=== PATIENT | male | born 1960 | race Caucasian/White ===

== ENCOUNTER → 2017-12-25 | Outpatient (CLI) | payer OTHER ==
[~2017-12-25] MED LIST: AMLODIPINE BESY10 MG PO; ASPIR 8181 MG PO; ATENOLOL 25 MG25 M1 PO; ATIVAN1 MG PO; CLONAZEPAM 0.50.5 M1 PO; PROZAC20 MG PO; ROBITUSSIN100 MG/53 PO; TRAMADOL 50 MG50 MG PO
== END ==
LOC: M.RAD 08:23
DX: R07.2 Precordial pain (principal)

== ENCOUNTER 2018-04-18 05:33 | Inpatient (IN) | payer OTHER ==
[~2018-04-18] VITALS: Ht 182.9 cm; Wt 90.0 kg
[2018-04-18] VITALS (8 sets, daily range): BP systolic 105–125; BP diastolic 46–79
[2018-04-18] MEDS ORDERED: AMLODIPINE BESY10 MG PO (06:00)
[2018-04-18] MEDS ORDERED: ATIVAN1 MG PO (06:01)
[2018-04-18] MEDS ORDERED: TRAMADOL 50 MG50 MG PO (06:01)
[2018-04-18 06:02] LABS: ABSOLUTE EOSINOPHILS 0.1 thou/uL (0.0-0.7); ABSOLUTE LYMPHOCYTES 0.6 thou/uL (0.8-5.3); ABSOLUTE MONOCYTES 0.7 thou/uL (0.0-1.2); ABSOLUTE NEUTROPHILS 4.4 thou/uL (1.6-8.1); BASOPHILS 0.4 %; EOSINOPHILS 1.1 %; HEMOGLOBIN 13.2 gm/dL (14.0-18.0); LYMPHOCYTES 10.8 %; MCHC 34.6 g/dL (28.0-37.0); MCV 92.3 fL (80.0-100.0); MONOCYTES 12.6 %; MPV 7.7 fl. (7.2-11.1); NUCLEATED RBCS 0 /100WBC; PLATELET COUNT* 222 thou/uL (150-400); POLYS 75.1 %; RBC 4.12 mil/uL (4.50-6.00); RDW-CV 14.6 % (10.5-14.5); WBC 5.9 thou/uL (4.0-11.0)
[2018-04-18] MEDS ORDERED: ROBITUSSIN100 MG/53 PO (06:02)
[2018-04-18] MEDS ORDERED: PROZAC20 MG PO (06:02)
[2018-04-18] MEDS ORDERED: CLONAZEPAM 0.50.5 M1 PO (06:02)
[2018-04-18] MEDS ORDERED: ATENOLOL 25 MG25 M1 PO (06:03)
[2018-04-18] MEDS ORDERED: ASPIR 8181 MG PO (06:04)
[2018-04-18 06:22] LABS: CALCIUM 8.9 mg/dL (8.5-10.1); POTASSIUM 4.3 mmol/L (3.5-5.1)
[2018-04-18 06:27] LABS: ALBUMIN 3.9 g/dL (3.4-5.0); TOTAL BILIRUBIN 1.3 mg/dL (<0.1-1.0); TOTAL PROTEIN 7.1 g/dL (6.4-8.2)
[2018-04-18 07:19] LABS: URINE BILIRUBIN NEGATIVE (Negative); URINE BLOOD TRACE (Negative); URINE CLARITY CLEAR; URINE COLOR YELLOW; URINE GLUCOSE-RANDOM NEGATIVE (Negative); URINE KETONES TRACE (Negative); URINE LEUKOCYTES-REFLEX NEGATIVE (Negative); URINE NITRITE-REFLEX NEGATIVE (Negative); URINE PROTEIN TRACE (Negative); URINE UROBILINOGEN 0.2 E.U./dl (0.2-1.0)
--- NOTE | 2018-04-18 14:50 | EKG ---
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: : 1960 Requested By: Natalia Parker Order Number: [id number] MD: Juancho Vanegas Measurements Intervals [place] Rate: 120 P: [place]: QRS: 47 QRSD: 171 T: 96 QT: 406 QTc: 574 Interpretive Statements Atrial fibrillation Ventricular premature complex Left bundle branch block No previous ECG available for comparison Electronically Signed On 04-18-2018 14:49:53 CDT by Juancho Vanegas [email or web address] <ELECTRONICALLY SIGNED> By: Juancho Vanegas MD, [facility] 04/18/18 1449 0549 0549 Juancho Vanegas MD, FACC /EPI
[2018-04-19] VITALS (21 sets, daily range): BP systolic 80–132; BP diastolic 23–67
[2018-04-19 00:52] LABS: HEMATOCRIT 44.4 % (42.0-52.0); HEMOGLOBIN 15.1 gm/dL (14.0-18.0); MCHC 33.9 g/dL (28.0-37.0); MCV 94.5 fL (80.0-100.0); MPV 8.1 fl. (7.2-11.1); RBC 4.7 mil/uL (4.50-6.00); RDW-CV 14.5 % (10.5-14.5); WBC 9.2 thou/uL (4.0-11.0)
[2018-04-19 01:09] LABS: CALCIUM 8.9 mg/dL (8.5-10.1); CREATININE 1.7 mg/dL (0.6-1.3)
[2018-04-19 01:14] LABS: POTASSIUM 6.8 mmol/L (3.5-5.1)
[2018-04-19 03:20] LABS: HCO3 13.1 mmol/L (22.0-26.0); PCO2 38.7 mmHg (35.0-45.0); PO2 66.9 mmHg (75.0-100.0)
[2018-04-19 03:21] LABS: pH 7.147 (7.340-7.450)
[2018-04-19 05:03] LABS: HEMATOCRIT 38.8 % (42.0-52.0); MCHC 33.5 g/dL (28.0-37.0); MCV 95.5 fL (80.0-100.0); MPV 8.3 fl. (7.2-11.1); NUCLEATED RBCS 1 /100WBC; PLATELET COUNT* 162 thou/uL (150-400); RBC 4.07 mil/uL (4.50-6.00); RDW-CV 14.8 % (10.5-14.5); WBC 10.9 thou/uL (4.0-11.0)
[2018-04-19 05:25] LABS: CALCIUM 7.1 mg/dL (8.5-10.1); CREATININE 2.2 mg/dL (0.6-1.3)
[2018-04-19 05:26] LABS: POTASSIUM 8.1 mmol/L (3.5-5.1)
[2018-04-19 05:30] LABS: ABSOLUTE LYMPHOCYTES 1.3 thou/uL (0.8-5.3); ABSOLUTE MONOCYTES 0.3 thou/uL (0.0-1.2); ABSOLUTE NEUTROPHILS 9.3 thou/uL (1.6-8.1); PLATELET ESTIMATE ADEQUATE; POLYCHROMASIA 1+
[2018-04-19 05:31] LABS: ANISOCYTOSIS 1+; HYPOCHROMASIA 1+; POIKILOCYTOSIS 1+
[2018-04-19 08:32] LABS: ALBUMIN 3.6 g/dL (3.4-5.0); CALCIUM 7.2 mg/dL (8.5-10.1); CREATININE 2.1 mg/dL (0.6-1.3); TOTAL BILIRUBIN 4.4 mg/dL (<0.1-1.0); TOTAL PROTEIN 6.6 g/dL (6.4-8.2)
[2018-04-19 08:35] LABS: POTASSIUM 6.7 mmol/L (3.5-5.1)
--- NOTE | 2018-04-19 09:55 | EKG ---
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 : 1960 Requested By: Juancho Vanegas Order Number: [id number] Jamey MD: Lyndon Gregg Measurements Intervals [place] Rate: 51 P: ID: QRS: 71 QRSD: 241 T: 75 QT: 664 QTc: 612 Interpretive Statements Atrial fibrillation LBBB Prolonged QT interval Compared to ECG 04/18/2018 05:49:52 Prolonged QT interval now present rate slowed Electronically Signed On 04-19-2018 9:54:51 CDT by Lyndon Gregg [email or web address] <ELECTRONICALLY SIGNED> By: Lyndon Gregg MD, [facility] 04/19/18 0954 0254 0254 Lyndon Gregg MD, [facility] /EPI
--- NOTE | 2018-04-19 09:55 | EKG ---
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
[2018-04-19 12:43] LABS: BE 0.9 mmol/L (-2 to +3); HCO3 25.5 mmol/L (22.0-26.0); PCO2 40.9 mmHg (35.0-45.0); PO2 115.2 mmHg (75.0-100.0); pH 7.413 (7.340-7.450)
[2018-04-19 12:45] LABS: CALCIUM 6.7 mg/dL (8.5-10.1); CREATININE 1.4 mg/dL (0.6-1.3); MAGNESIUM 1.8 mg/dL (1.8-2.4); POTASSIUM 3.5 mmol/L (3.5-5.1)
--- NOTE | 2018-04-19 15:19 | 2DMMODE ---
[place] [address] 2 D/M-MODE ECHOCARDIOGRAM Name: ROQUE BETANCOURT JR Room: [facility] IN [facility]#: [id number] Admission: 04/18/18 Attend Phys: Luis Felder Discharge: 04/19/18 Date of : 60 Date of Service: 04/19/18 1519 Report #: [id number] THIS REPORT FOR: //name// APPROVED REPORT Study performed: 04/19/2018 12:00:10 EXAM: Comprehensive 2D, Doppler, and color-flow Echocardiogram Patient Location: In-Patient Room #: 003 Status: routine BSA: 2.08 HR: 78 bpm BP: 105/57 mmHg Rhythm: NSR Other Information Study Quality: Good Indications Murmur Atrial Fibrillation 2D Dimensions LVEF(%): 42.53 (>50%) IVSd: 11.42 (7-11mm) LVOT Diam: 25.84 (18-24mm) LVDd: 52.06 mm PWd: 11.01 (7-11mm) Ascending Ao: 32.84 (22-36mm) LVDs: 41.09 (25-40mm) Aortic Root: 34.48 mm Perez's LVEF: 42.53 % Volumes Left Atrial Volume (Systole) LA ESV Index: 54.70 mL/m2 Aortic Valve AoV Peak Pastor.: 1.49 m/s AO Peak Gr.: 8.89 mmHg LVOT Max P.30 mmHg AO Mean Gr.: 5.23 mmHg LVOT Mean P.09 mmHg LVOT Max V: 1.04 m/s AO V2 VTI: 29.07 cm LVOT Mean V: 0.66 m/s RAEANN (VTI): 3.90 cm2 LVOT V1 VTI: 21.[place] [address] 2 D/M-MODE ECHOCARDIOGRAM Name: ROQUE BETANCOURT Room: [address] IN .R.#: [id number] Admission: 04/18/18 Attend Phys: Luis Felder Discharge: 04/19/18 Date of : 60 Date of Service: 04/19/18 1519 Report #: [id number] Medial E' Pastor.: 0.08 m/s Lateral E' Pastor.: 0.10 m/s Pulmonary Valve PV Peak Pastor.: 0.59 m/s PV Peak Gr.: 1.38 mmHg Tricuspid Valve RAP Estimate: 5.00 mmHg TR Peak Gr.: 27.90 mmHg RVSP: 32.00 mmHg PA Pressure: 32.00 mmHg Left Ventricle The left ventricle is normal size. There is global hypokinesis of the left ventricle. There is normal left ventricular wall thickness. Left ventricular systolic function is mildly decreased. LVEF is 35-40%. The left ventricular diastolic function is normal. Right Ventricle The right ventricle is normal size. The right ventricular systolic function is normal. Atria Left atrium is severely dilated. The right atrium size is normal. Aortic Valve The aortic valve is normal in structure. Moderate aortic regurgitation. There is no aortic valvular stenosis. Mitral Valve The mitral valve is normal in structure. Trace mitral regurgitation. No evidence of mitral valve stenosis. Tricuspid Valve The tricuspid valve is normal in structure. Mild tricuspid regurgitation pa pressure 40 mm Hg Pulmonic Valve The pulmonary valve is normal in structure. Mild pulmonic regurgitation. Great Vessels The aortic root is normal in size. IVC is normal in size and collapses with >50% [place] [address] 2 D/M-MODE ECHOCARDIOGRAM Name: ROQUE BETANCOURT JR Room: [address] IN [facility].#: [id number] Admission: 04/18/18 Attend Phys: Luis Felder Discharge: 04/19/18 Date of : 60 Date of Service: 04/19/18 1519 Report #: [id number] There is no pericardial effusion. <Conclusion> LVEF is 35-40%. Left atrium is severely dilated. Moderate aortic regurgitation. Mild tricuspid regurgitation pa pressure 40 mm Hg <ELECTRONICALLY SIGNED> By: Lyndon Gregg MD, [facility] 04/19/18 1519 1519 1519 Lyndon Gregg MD, FAC /INF
--- NOTE | 2018-04-19 16:07 | EKG ---
[place] [address] ELECTROCARDIOGRAM REPORT Name: ROQUE BETANCOURT Room: [address] DIS IN M.R.#: [id number] Admission: 04/18/18 Attend Phys: Luis Gale, Discharge: 04/19/18 Date of : 60 Report #: [id number] THIS REPORT FOR: //name// [facility] ED Test Date: 2018-04-18 Test Time: 07:40:46 Pat Name: ROQUE BETANCOURT Department: Room: [address] Gender: M Director Supply Chain: Delma DURON : 1960 Requested By: Natalia Parker Order Number: [id number] Jamey MD: Lyndon Gregg Measurements Intervals [place] Rate: 103 P: -12 [place]: 111 QRS: 62 QRSD: 175 T: -63 QT: 428 QTc: 561 Interpretive Statements Sinus tachycardia LBBB Compared to ECG 04/18/2018 05:49:52 Atrial fibrillation no longer present Electronically Signed On 04-19-2018 16:06:53 CDT by Lyndon Gregg [email or web address] <ELECTRONICALLY SIGNED> By: Lyndon Gregg MD, [facility] 04/19/18 1606 0740 0740 Lyndon Gregg MD, [facility] /EPI
--- NOTE | 2018-04-20 10:10 | CON ---
[address] [address] CONSULTATION Name: KORY BETANCOURTMOND KOFFI Room: [address] IN .R.#: [id number] Admission: 04/18/18 Attend Phys: Luis Gale, Discharge: 04/19/18 Date of : 60 Report #: [id number] THIS REPORT FOR: //name// CC: Daily Gale DATE OF SERVICE: 04/19/2018 LOCATION: Room 3 in the ICU. ATTENDING PHYSICIAN: Luis Gale MD INDICATION FOR CONSULTATION: Acute respiratory failure, pulmonary edema, renal failure. HISTORY OF PRESENT ILLNESS: The patient is a 57-year-old male, prior smoker, who was admitted to the hospital 2 days ago with atrial fibrillation and rapid ventricular response. He has no prior history of atrial arrhythmias. He was on diltiazem drip and then he was given some sotalol because the diltiazem was not effective. After the sotalol, he went bradycardic and hypotensive. He was coded. He was transferred to the ICU with asystole and basically, they got him back into a normal sinus rhythm. He is currently on Levophed for pressors at this time. 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 The Emergency Room doctor did an excellent job and with a GlideScope, got a #5.0 oral end[address]racheal tube in place. It is still a little high on the chest x-ray, but he is getting lung volumes and his oxygenation is good at this time. Peak airway pressures are 26 currently. He is going to get emergent dialysis because his potassium level was 8 this morning and his creatinine is up to 3-4 range and he is not making much urine. Chest x-ray shows pulmonary edema. He probably will be transferred to [facility] later on today since that is where all his therapy was at and I have given my okay on that. ALLERGIES: He has no known medical allergies. PAST MEDICAL HISTORY: Includes a history of aortic insufficiency and he has not had any aortic valve replacement. 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 Also, has a history [place] [address] CONSULTATION Name: ROQUE BETANCOURT Room: [address]#: [id number] Admission: 04/18/18 Attend Phys: Luis Gale, Discharge: 04/19/18 Date of : 60 Report #: [id number] OUTPATIENT MEDICATIONS: Included clonazepam, aspirin 81 mg daily, fluoxetine 20 mg daily, benzonatate 200 mg every 6 hours, sotalol 80 mg b.i.d. He is currently on an IV Versed drip and also on Levophed for hypotension. FAMILY HISTORY: Positive for hypertension. SOCIAL HISTORY: By his history, he is a smoker and denies using any recreational drug use. He was drinking beers daily, 4 beers a day; I think he is still doing that. REVIEW OF SYSTEMS: A 14-point review of systems reviewed and negative except for pertinent positives noted in HPI. PHYSICAL EXAMINATION: GENERAL: An ill-appearing 57-year-old male who is in moderate distress, on the ventilator. VITAL SIGNS: Blood pressure is 90/50, heart rate is 100, respirations were 14 over a backup rate of 14, temperature is afebrile. He is 6 feet 1 inch tall, weight is 90 kilograms or 205 pounds, BMI is 27. HEENT: Pupils are midpoint and reactive. He is orally intubated with very small 5.0 oral endotracheal tube. His mouth is very small and he has a scar over his left cheek. This is from previous radiation therapy and surgery. NECK: Shows limited range of motion and some tight radiation type changes over his neck. CHEST: Shows bilateral breath sounds with occasional rhonchi. No crackles noted. CARDIOVASCULAR: Irregular rate and rhythm with ventricular response in the 90-100 range. ABDOMEN: Soft without masses or megaly. EXTREMITIES: No calf tenderness. No cyanosis, clubbing or edema. NEUROLOGIC: The patient certainly moves all 4 extremities to commands and is quite irritated and agitated. LABORATORY DATA: This morning, hemoglobin is 13; white count is 11,000, normal differential; platelets are 162,000. Sodium is 126, potassium 6.7, being dialyzed at this time. Carbon dioxide is 20 and BUN is 21, creatinine is 2.1. AST is 10,194; ALT is 8715. NT-proBNP is elevated at 13,980. Albumin is 3.6. ABGs again that we had from this morning on 100% and 550, assist control 14 and PEEP of 8 with a peak airway pressure of 26 shows a pO2 of 67, a pH of 7.15, pCO2 is 38, bicarbonate is 13 with sat of 83%. Currently, his sats were 98% on the monitor. Chest x-ray shows pulmonary edema. Right subclavian dialysis catheter is in place. ET tube is still high overlying C7. We will try and advance at 2 or 3 cm, maybe somewhat difficult with his head and neck tumor. IMPRESSION: 1. Acute respiratory failure, [place] [address] CONSULTATION Name: SERAFINROQUE JR Room: [address] IN [facility].#: [id number] Admission: 04/18/18 Attend Phys: Luis Gale, Discharge: 04/19/18 Date of : 60 Report #: [id number] 2. Cardiac arrest, probably related to atrial fibrillation and then renal failure. 3. Acute renal failure with hyperkalemia. 4. History of head and neck cancer with very difficult airway. PLAN: This has been a difficult situation for the patient. It appears that his ET tube is fair at this time. We will see if we can advance it a couple of centimeters and get a little bit better down to the trachea. The ER doctor used a GlideScope to get that in last night. She could not get a 7 or a 6 in. Leave the 5 in for this time. Leave him on the ventilator. Check another blood gas to make sure his oxygenation, acidosis is improving. Proceed from there after that. Hopefully, if he stabilizes, we can get him to [facility] where they have a backup for ENT and a tracheostomy if we need to. He has had a very difficult head and neck cancer and his airway is quite difficult. We will keep him on some breathing treatments and keep him sedated at this time. This has been a 35-minute critical care consult. <ELECTRONICALLY SIGNED> By: Wilmer Mott MD 04/20/18 1010 1059 1851Ajose Mott MD /nt
--- NOTE | 2018-04-22 09:12 | CON ---
[address] [address] CONSULTATION Name: BETANCOURTROQUE JR Room: [address] IN .R.#: [id number] Admission: 04/18/18 Attend Phys: Luis Gale, Discharge: 04/19/18 Date of : 60 Report #: [id number] THIS REPORT FOR: //name// CC: Lyndon Gale DATE OF SERVICE: 04/19/2018 CONSULTING PHYSICIAN: Dr. Velasquez. REASON FOR NEPHROLOGY CONSULTATION: Acute kidney injury and hyperkalemia. CHIEF COMPLAINT: Cough. 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 He was found to be in atrial fibrillation, which was new onset for him and he was in RVR, so he was started on diltiazem drip and admitted to regular floor with monitoring. Cardiology also evaluated the patient, started him on sotalol in addition to the diltiazem drip. His creatinine was 1 when he came in yesterday. Overnight, he lost his pulse and had to undergo CPR for 3 minutes before return of spontaneous circulation. Currently, he is intubated and sedated and he is on 100% FiO2 with 8 of PEEP and he has acute kidney injury with a creatinine of 2.2 and his potassium was 8.1 and sodium 126. Nephrology has been consulted for acute kidney injury and for hyperkalemia. Hyperkalemia has been treated medically with insulin, but still the last potassium was 6.7. I am not sure if he does not take any NSAIDs or not and do not have his home medication list currently. He is on 12 mcg of Levophed right now. He does drink 4 beers a day. REVIEW OF SYSTEMS: Currently, the patient is intubated and sedated, so I cannot obtain right now. He did have some cough when he came in and he coded last night and currently he is on mechanical ventilation. ALLERGIES: No known drug allergies. PAST MEDICAL HISTORY: His medical problems include history of hypothyroidism, hypertension, aortic sinus of Valsalva aneurysm, and buccal cancer. PAST SURGICAL HISTORY: Include carcinoma of the buccal mucosa was treated and he had repair of his aortic valve in August 2017 [place] [address] CONSULTATION Name: ROQUE BETANCOURT JR Room: [address] M.R.#: [id number] Admission: 04/18/18 Attend Phys: Luis Gale, Discharge: 04/19/18 Date of : 60 Report #: [id number] HOME MEDICATIONS: This is not a verified list, but as per his chart, he is on tramadol, lorazepam, Robitussin, amlodipine, clonazepam, fluoxetine, atenolol and aspirin. FAMILY HISTORY: Hypertension as per his chart. SOCIAL HISTORY: He drinks about 4 beers a day and does not smoke and does not use recreational drugs. PHYSICAL EXAMINATION: VITAL SIGNS: Blood pressure is 132/58, but he is on 12 mcg of Levophed; respiratory rate is 16, pulse rate is 93, temperature 35.6, pulse ox is 95% on 100% FiO2. GENERAL: He is currently intubated, sedated. HEAD, EYES, EARS, NOSE AND THROAT: Mucous membranes cannot be assessed right now, he has an ET tube in place. NECK: There is no JVD. CHEST: Bilateral diminished breath sounds. No crackles or wheezing. CARDIOVASCULAR: S1, S2 normal. No murmurs heard. ABDOMEN: Soft, nondistended and is nontender. Bowel sounds diminished. EXTREMITIES: There is no lower extremity edema currently and symmetrical extremities. NEUROLOGIC: Cannot be assessed. He is sedated right now. PSYCHIATRIC: Cannot be assessed. LABS: From this morning, his sodium is 126, potassium is 6.7, chloride is 92, CO2 is 20, BUN is 21, creatinine is 2.1 and all the labs are reviewed and creatinine was 1.0 when he came in yesterday. IMAGING: Chest x-rays were reviewed. ASSESSMENT AND PLAN: 1. Acute kidney injury, which is in all likelihood ischemic acute tubular necrosis after cardiac arrest: The patient is in cardiogenic shock and currently has acute kidney injury, but has started making urine, has about 500 mL of urine output in the last few hours. Creatinine is 2.1, but his potassium is 6.7. He will be dialyzed today. A temporary dialysis line has been placed already. The patient was actually seen on dialysis this morning. We will dialyze him for a couple of hours. We will try to remove 1 liter of fluid off of him and his labs will be repeated one hour after dialysis. Dialysis was explained to the patient's mother and the patient's has also consented to it and in agreement with dialysis. Avoid nephrotoxic agents. We will also check a renal ultrasound, although this most likely looks like acute kidney injury because of hemodynamic instability. 2. Acute cardiogenic shock. He is in fluid overload. He started making urine now. He is on 100% FiO2 with 8 of PEEP. We will try to remove [place] [address] CONSULTATION Name: ROQUE BETANCOURT Room: [address]#: [id number] Admission: 04/18/18 Attend Phys: Luis Gale, Discharge: 04/19/18 Date of : 60 Report #: [id number] off of him with dialysis. If he does not come off of pressors, he may have to go on CRRT. Stop his bicarbonate drip and other IV fluids now. 3. New onset atrial fibrillation with rapid ventricular response: Heart rate is not controlled and cardiology is closely monitoring him. 4. Hyponatremia. This is likely because of poor solute intake and he was drinking a lot of beers a day and now he has renal insufficiency, which will also lead to hyponatremia because of impaired free water excretion. We will dialyze him with 134 sodium in order to not rapidly increase the sodium level. 5. Anion gap metabolic acidosis and metabolic alkalosis: Dialysis should help. 6. Lactic acidosis: This is because of hypoperfusion. Thank you for this consultation. I discussed the patient's care with the patient's mother, the patient's nurse as well as the patient's primary doctor, Dr. Velasquez. We will continue to follow him. I spent more than 45 minutes in the patient's critical care and reviewing the patient's records, placing orders and discussion with family and relatives and discussion with the patient's nurse. We will continue to follow along with you. <ELECTRONICALLY SIGNED> By: Daily Bañuelos MD 04/22/18 0912 1002 1554Aeleazar Bañuelos MD /nt
== END 2018-04-19 13:45 | disposition short-term general hospital (02) | DRG 208 ==
LOC: M.ERS 05:33 → M.TBA-ER 07:07 → M.ICU 07:07 → M.2W 07:07 → M.ICU 04-19 02:32
PROVIDERS: Emergency Medicine; Internal Medicine; Internal Medicine Pulmonary Disease; ADMIT Family Medicine
PROC: B548ZZA Ultrasonography of Superior Vena Cava, Guidance (ICD-10-PCS; principal; 2018-04-19)
PROC: 5A1935Z Respiratory Ventilation, Less than 24 Consecutive Hours (ICD-10-PCS; principal; 2018-04-19)
PROC: 0BH17EZ Insertion of Endotracheal Airway into Trachea, Via Natural or Artificial Opening (ICD-10-PCS; principal; 2018-04-19)
PROC: 02HV33Z Insertion of Infusion Device into Superior Vena Cava, Percutaneous Approach (ICD-10-PCS; principal; 2018-04-19)
DX: J96.01 Acute respiratory failure with hypoxia (principal); R57.0 Cardiogenic shock; I50.21 Acute systolic (congestive) heart failure; N17.9 Acute kidney failure, unspecified; B17.9 Acute viral hepatitis, unspecified; E87.1 Hypo-osmolality and hyponatremia; E87.2 Acidosis; E87.3 Alkalosis; E87.5 Hyperkalemia; I48.91 Unspecified atrial fibrillation; F32.9 Major depressive disorder, single episode, unspecified; I11.0 Hypertensive heart disease with heart failure; I35.1 Nonrheumatic aortic (valve) insufficiency; J02.9 Acute pharyngitis, unspecified; E03.9 Hypothyroidism, unspecified; I95.9 Hypotension, unspecified; Z79.899 Other long term (current) drug therapy; Z79.82 Long term (current) use of aspirin; Z82.49 Family history of ischemic heart disease and other diseases of the circulatory system; Z95.2 Presence of prosthetic heart valve; Z85.89 Personal history of malignant neoplasm of other organs and systems; Z92.21 Personal history of antineoplastic chemotherapy; Z92.3 Personal history of irradiation

== ENCOUNTER → 2018-09-17 | Outpatient (CLI) | payer OTHER | LOC: M.RAD 09:07 | DX: M25.571 Pain in right ankle and joints of right foot (principal); N17.1 Acute kidney failure with acute cortical necrosis; F32.1 Major depressive disorder, single episode, moderate; I89.0 Lymphedema, not elsewhere classified; F41.1 Generalized anxiety disorder ==